=== PATIENT | female | born 1940 | race Caucasian/White ===

== ENCOUNTER 2023-03-01 18:11 | Emergency (ER) | payer MEDICARE ==
[~2023-03-01] VITALS: Ht 162.6 cm; Wt 63.0 kg
[2023-03-01] MEDS ORDERED: methylPREDNISolone sod succ 125mg/2ml vial IM ONE (18:40)
[2023-03-01] MEDS ORDERED: diphenhydrAMINE 50 mg/ml inj IM ONE (18:40)
[2023-03-01 19:31] VITALS: BP 127/69; PULSE 67; RESP 17; TEMP 98.2; O2SAT 98
== END 2023-03-01 19:32 | disposition home or self-care (01) ==
LOC: ER 18:13
DX: T78.49XA Other allergy, initial encounter (principal); Z88.8 Allergy status to other drugs, medicaments and biological substances; Z88.1 Allergy status to other antibiotic agents; X58.XXXA Exposure to other specified factors, initial encounter
CPT/HCPCS: 96372; 99284; J1200; J2930